=== PATIENT | male | born 1950 | race Caucasian/White ===

== ENCOUNTER → 2017-01-13 | Outpatient (CLI) | payer OTHER ==
--- NOTE | 2017-01-14 15:30 | MR ---
EXAM DATE: 01/13/17 PATIENT'S AGE: 66 Patient: VIV KHALIL Facility: [place], [place] Site . Site : 1950 Study: MRI Knee Left [id number]/26/2017 4:26:37 PM Ordering Physician: Osvaldo Loya Final Report: HISTORY: Left knee pain. Technique: MRI left knee without contrast. Comparison: None. Findings: Medial compartment: Medial meniscus: Nondisplaced horizontal tear extending to the inferior surface of the body and posterior horn of the meniscus. Posterior meniscal root is intact. Anterior horn is intact. Articular cartilage: No focal cartilage defects. Lateral compartment: Lateral meniscus: Intact. Articular cartilage: No focal cartilage defects. 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 No focal patellar cartilage defects. Ligaments: ACL: Intact. PCL: Intact. MCL: Intact. Lateral ligamentous complex: Intact. Extensor mechanism: Distal quadriceps and patellar tendons are intact. Medial and lateral patellar restraints are intact. Joint space: Small joint effusion. No joint bodies. Bones and soft tissues: Reactive marrow edema in the medial margin of the medial tibial plateau. No fracture. No marrow replacing process. Small amount of fluid in the semimembranosus/gastrocnemius bursae with ill-defined fluid along the superficial margin of the medial head gastrocnemius muscle suggesting leaking or ruptured popliteal cyst. Impression: 1. Nondisplaced medial meniscus tear. 2. 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 No other focal cartilage defects. 3. Small joint effusion. Dictated by Evan Vasquez MD @ Jan 14 2017 10:17AM (Electronic Signature) Report Signed by Proxy. [facility]
== END ==
LOC: MW.MRI 14:48
DX: S83.242A Other tear of medial meniscus, current injury, left knee, initial encounter (principal); M25.462 Effusion, left knee; M25.562 Pain in left knee; R60.9 Edema, unspecified
CPT/HCPCS: 73721-26-LT; 73721-LT